=== PATIENT | female | born 1995 | race Caucasian/White ===

== ENCOUNTER 2017-02-19 20:57 | Emergency (ER) | payer SELFPAY ==
[~2017-02-19] VITALS: Ht 175.3 cm; Wt 72.0 kg
[~2017-02-19 20:57] MED LIST: SULF-154 PO; Z.0.NO CURRENT MEDS
[2017-02-19 21:00] VITALS: BP 132/78; PULSE 86; RESP 16; TEMP 98.2; O2SAT 100
[2017-02-19] MEDS ORDERED: SODIUM CHLOR 0.9% 1000 ML INJ 1,000 ML IV ONE (21:51)
--- NOTE | 2017-02-19 21:56 | PD ---
HPI Chief Complaint: GI Complaint Time Seen by Provider: 21:51 Travel History International Travel<30 days: No Contact w/Intl Traveler<30days: No Traveled to known affect area: No History of Present Illness HPI The patient is a 21-year-old female who presents to the emergency department for lower abdominal pain and . The patient states her last normal menstrual cycles begin in January, she is a who recently took a test that was positive. The patient notes a three-day history of lower abdominal pain which is intermittent, crampy, and sharp. The patient also notes some vaginal itching with some discharge, used [id number] Monistat for a possible yeast infection. She denies any spotting or bleeding. She does note mild nausea over the last 3 days, denies any diarrhea or constipation. The patient does take oral contraceptive pills, however, states she missed several doses of her oral contraceptive pill. PFSH Past Medical History Medical History: Denies Significant Hx Immunizations Current: Yes ?: Past Surgical History Surgical History: No Previous Surgery Oral Surgery: Yes Social History Alcohol Use: No Tobacco Use: Yes (1 PPD) Substance Use: No Allergies-Medications (Allergen,Severity, Reaction): Coded Allergies: No Known Allergies (Verified , 02/19/17) Reported Meds & Prescriptions Reported Meds & Active Scripts Active Septra Ds (Trimethoprim/Sulfamethoxazole) Tab 1 Tab PO BID Reported No Current Meds (Miscellaneous Medication) Misc Review of Systems Except as stated in HPI: all other systems reviewed are Neg General / Constitutional: No: Fever Cardiovascular: No: Chest Pain or Discomfort Respiratory: No: Shortness of Breath Gastrointestinal: Positive: Nausea, Vomiting, Abdominal Pain, No: Diarrhea Genitourinary: Positive: Pelvic Pain, Discharge, No: Dysuria, Vaginal Bleeding Physical Exam Narrative GENERAL: Awake, alert, nontoxic-appearing 21-year-old female who appears her stated age and is in no acute respiratory distress. SKIN: Focused skin assessment warm/dry. HEAD: Atraumatic. Normocephalic. EYES: No injection or drainage. ENT: No nasal bleeding or discharge. Mucous membranes pink and moist. NECK: Trachea midline. No JVD. CARDIOVASCULAR: Regular rate and rhythm. No murmur appreciated. RESPIRATORY: No accessory muscle use. Clear to auscultation. Breath sounds equal bilaterally. GASTROINTESTINAL: Abdomen soft, minimal suprapubic tenderness. No rebound tenderness, guarding, rigidity. Back: No CVA tenderness. Pelvic: The patient deferred, was to follow-up in an outpatient clinic. MUSCULOSKELETAL: No obvious deformities. No clubbing. No cyanosis. No edema. NEUROLOGICAL: Awake and alert. No obvious cranial nerve deficits. Motor grossly within normal limits. Normal speech. PSYCHIATRIC: Appropriate mood and affect; insight and judgment normal. Data Data Last Documented VS Vital Signs Date Time Temp Pulse Resp B/P (MAP) Pulse Ox O2 Delivery O2 Flow Rate FiO2 02/19/17 21:00 98.2 86 16 132/78 (96) 100 Room Air Orders Orders Beta Hcg (Quant/Titer) (02/19/17 21:51) Gc And Chlamydia Pcr (02/19/17 21:51) Complete Rh (02/19/17 21:51) Wet Prep Profile (02/19/17 21:51) Urinalysis - C+S If Indicated (02/19/17 21:51) Sodium Chlor 0.9% 1000 Ml Inj (Ns 1000 M (02/19/17 21:51) Ed Urine Pregnancytest Poc (02/19/17 21:51) Labs Laboratory Tests Test 02/19/17 22:10 Urine Color YELLOW Urine Turbidity HAZY Urine pH 5.5 Urine Specific [place] 1.031 Urine Protein NEG mg/dL Urine Glucose (UA) NEG mg/dL Urine Ketones NEG mg/dL Urine Occult Blood MOD Urine Nitrite NEG Urine Bilirubin NEG Urine Urobilinogen LESS THAN 2.0 MG/DL Urine Leukocyte Esterase SMALL Urine RBC 6 /hpf Urine WBC 1 /hpf Urine Squamous Epithelial Cells 1 /hpf Urine Bacteria RARE /hpf Microscopic Urinalysis Comment CULT NOT INDICATED Human Chorionic Gonadotropin, Quant LESS THAN 1 MIU/ML MDM Medical Decision Making Medical Screen Exam Complete: Yes Emergency Medical Condition: Yes Medical Record Reviewed: Yes Interpretation(s) Laboratory Tests Test 02/19/17 22:10 Urine Color YELLOW Urine Turbidity HAZY Urine pH 5.5 Urine Specific [place] 1.031 Urine Protein NEG mg/dL Urine Glucose (UA) NEG mg/dL Urine Ketones NEG mg/dL Urine Occult Blood MOD Urine Nitrite NEG Urine Bilirubin NEG Urine Urobilinogen LESS THAN 2.0 MG/DL Urine Leukocyte Esterase SMALL Urine RBC 6 /hpf Urine WBC 1 /hpf Urine Squamous Epithelial Cells 1 /hpf Urine Bacteria RARE /hpf Microscopic Urinalysis Comment CULT NOT INDICATED Human Chorionic Gonadotropin, Quant LESS THAN 1 MIU/ML Differential Diagnosis Differential diagnosis includes ectopic , threatened AB, normal , vaginitis, PID, cervicitis, UTI. Narrative Course IV was established, labs are drawn and sent, and the patient was placed on cardiac telemetry monitoring and continuous pulse oximetry monitoring. Bedside UA test was obtained and UA was sent to lab. The patient was administered 1 L of IV fluids. Bedside UA test was negative, however , patient states she had a positive test. Therefore, quantitative beta hCG was sent to lab. Beta hCG is less than 1. Patient refused pelvic examination, states she would prefer to go to an outpatient clinic. The patient will be discharged. Diagnosis Primary Impression: Pelvic pain in female Patient Instructions: General Instructions Additional Instructions: Please provide the patient copy of her labs at discharge. Follow-up with the health department and/or clinical cytogenetics director as needed. Return if symptoms worsen or progress. Med/Other Pt SpecificInfo: No Change to Meds Disposition: 01 DISCHARGE HOME Condition: Stable Jp Barth MD Feb 19, 2017 21:56
[2017-02-19 22:42] LABS: URINE COLOR YELLOW (YELLW/STRAW)
[2017-02-19 22:43] LABS: BACTERIA, URINE RARE /hpf; BLOOD, URINE MOD (NEG); COMMENT (UR) CULT NOT INDICATED; CULTURE IF INDICATED CULT NOT INDICATED; GLUCOSE,URINE NEG (NEG); KETONE, URINE NEG (NEG); NITRITE,URINE NEG (NEG); PH, URINE 5.5 (5.0-8.5); SQUAMOUS EPITHELIAL CELL URINE 1 /hpf (0-5)
[2017-02-19 23:05] LABS: BETA HCG QUANT LESS THAN 1 MIU/ML (0-5)
== END 2017-02-20 00:29 | disposition home or self-care (01) ==
LOC: NEPE 20:57
DX: R10.2 Pelvic and perineal pain (principal); R11.2 Nausea with vomiting, unspecified; F17.200 Nicotine dependence, unspecified, uncomplicated
CPT/HCPCS: 81001; 84702; 84703; 86901; 99284; J7030

== ENCOUNTER 2017-06-22 14:47 | Emergency (ER) | payer SELFPAY ==
[~2017-06-22] VITALS: Ht 175.3 cm; Wt 77.3 kg
[2017-06-22 14:49] VITALS: BP 189/73; PULSE 76; RESP 16; TEMP 98.4; O2SAT 98
[2017-06-22 16:15] LABS: AUTOMATED NEUTROPHIL # 5.4 TH/MM3 (1.8-7.7); BASOPHIL % 0.4 % (0.0-2.0); EOSINOPHIL # 0.2 TH/MM3 (0-0.4); EOSINOPHIL % 2.8 % (0.0-4.0); HEMATOCRIT 40.2 % (35.0-46.0); HEMOGLOBIN 13.5 GM/DL (11.6-15.3); LYMPH % 25.8 % (9.0-44.0); LYMPHOCYTE # 2.1 TH/MM3 (1.0-4.8); MEAN CELL VOLUME 87.5 FL (80.0-100.0); MEAN CORPUSCULAR HEMOGLOBIN 29.4 PG (27.0-34.0); MEAN CORPUSCULAR HGB CONC 33.6 % (32.0-36.0); MEAN PLATELET VOLUME 7.6 FL (7.0-11.0); MONO % 5.7 % (0.0-8.0); MONOCYTE # 0.5 TH/MM3 (0-0.9); NEUT % 65.3 % (16.0-70.0); PLATELET COUNT 283 TH/MM3 (150-450); WHITE BLOOD COUNT 8.2 TH/MM3 (4.0-11.0)
[2017-06-22 16:25] LABS: ALBUMIN 4.2 GM/DL (3.4-5.0); ALT (GPT) 23 U/L (9-42); AST (GOT) 11 U/L (16-38); BICARBONATE 28.9 MEQ/L (21.0-32.0); BLOOD UREA NITROGEN 8 MG/DL (7-18); CALCIUM 8.7 MG/DL (8.5-10.1); CHLORIDE 103 MEQ/L (98-107); CREATININE 0.52 MG/DL (0.50-1.00); GLOMERULAR FILTRATION RATE 152 ML/MIN (>89); GLUCOSE,RANDOM 87 MG/DL (74-106); SODIUM (NA) 139 MEQ/L (136-145)
[2017-06-22 16:27] LABS: ALKALINE PHOSPHATASE 78 U/L (45-117); TOTAL BILIRUBIN ADULT 0.1 MG/DL (0.2-1.0); TOTAL PROTEIN 8.3 GM/DL (6.4-8.2)
[2017-06-22 16:29] LABS: BILIRUBIN, URINE NEG (NEG); BLOOD, URINE MOD (NEG); GLUCOSE,URINE NEG (NEG); KETONE, URINE NEG (NEG); MUCUS URINE FEW /lpf (OCC); NITRITE,URINE NEG (NEG); SQUAMOUS EPITHELIAL CELL URINE 2 /hpf (0-5); URINE COLOR YELLOW (YELLW/STRAW); URINE LEUKOCYTE ESTERASE TRACE (NEG)
--- NOTE | 2017-06-22 17:51 | PD ---
HPI Chief Complaint: GI Complaint Time Seen by Provider: 17:50 Travel History International Travel<30 days: No Contact w/Intl Traveler<30days: No Traveled to known affect area: No History of Present Illness HPI 21-year-old female presents to the emergency Department with complaint of nausea for the past 2-3 months without vomiting. Reports diarrhea onset today. Has had epigastric abdominal pain after eating for the past 2-3 days and has been taking Pepto-Bismol with good relief of symptoms. Says her symptoms are most aggravated with eating [place] food. Denies fever, chills. Reports feeling dizzy, but has history of vertigo for 2-1/2 years and her current episodes of dizziness are consistent with her vertigo. Denies risk of . Last menstrual period 06/16/2017. Denies vaginal discharge, odor, dysuria. Denies history of abdominal surgeries. Has had similar stomach aches since middle school. Denies abdominal pain at this time. Denies hematochezia, hematuria. Symptoms aggravated after eating. Relieved by Pepto-Bismol. Symptoms are mild in severity. Denies pain at this time. No known allergies. Denies significant past medical history. No primary care provider. Has no other medical complaints. No other modifying factors or associated signs and symptoms. PFSH Past Medical History Immunizations Current: Yes ?: Unknown Past Surgical History Oral Surgery: Yes Social History Alcohol Use: No Tobacco Use: Yes (1 PPD) Substance Use: No (hx of ) Allergies-Medications (Allergen,Severity, Reaction): Coded Allergies: No Known Allergies (Verified , 02/19/17) Reported Meds & Prescriptions Reported Meds & Active Scripts Active Protonix (Pantoprazole Sodium) 40 Mg Tab 40 Mg PO DAILY Septra Ds (Trimethoprim/Sulfamethoxazole) Tab 1 Tab PO BID Reported No Current Meds (Miscellaneous Medication) Misc Review of Systems Except as stated in HPI: all other systems reviewed are Neg Physical Exam Narrative GENERAL: Well-nourished, well-developed female patient, in no acute distress; afebrile; nontoxic appearing SKIN: Warm and dry. HEAD: Atraumatic. Normocephalic. EYES: Pupils equal and round. No scleral icterus. No injection or drainage. ENT: Mucosa pink and moist. Airway patent. NECK: Trachea midline. CARDIOVASCULAR: Regular rate and rhythm. No murmur appreciated. RESPIRATORY: No accessory muscle use. Clear to auscultation. Breath sounds equal bilaterally. GASTROINTESTINAL: Abdomen soft, nontender, nondistended. Hepatic and splenic margins not palpable. No RUQ tenderness reproduced; negative Alejandra's sign. Bowel sounds are active 4 quadrants. Nonrigid. No rebound tenderness. No guarding. BACK: No CVA tenderness. MUSCULOSKELETAL: No obvious deformities. No clubbing. No cyanosis. No edema. NEUROLOGICAL: Awake and alert. Oriented 3. No obvious cranial nerve deficits. Motor grossly within normal limits. Normal speech. PSYCHIATRIC: Appropriate mood and affect; insight and judgment normal. Data Data Last Documented VS Vital Signs Date Time Temp Pulse Resp B/P (MAP) Pulse Ox O2 Delivery O2 Flow Rate FiO2 06/22/17 14:49 98.4 76 16 189/73 (111) 98 Room Air Orders Orders Complete Blood Count With Diff (06/22/17 15:07) Comprehensive Metabolic Panel (06/22/17 15:07) Lipase (06/22/17 15:07) Urinalysis - C+S If Indicated (06/22/17 15:07) Ed Urine Pregnancytest Poc (06/22/17 15:07) Ed Discharge Order (06/22/17 18:14) Labs Laboratory Tests Test 06/22/17 15:21 White Blood Count 8.2 TH/MM3 Red Blood Count 4.60 MIL/MM3 Hemoglobin 13.5 GM/DL Hematocrit 40.2 % Mean Corpuscular Volume 87.5 FL Mean Corpuscular Hemoglobin 29.4 PG Mean Corpuscular Hemoglobin Concent 33.6 % Red Cell Distribution Width 14.0 % Platelet Count 283 TH/MM3 Mean Platelet Volume 7.6 FL Neutrophils (%) (Auto) 65.3 % Lymphocytes (%) (Auto) 25.8 % Monocytes (%) (Auto) 5.7 % Eosinophils (%) (Auto) 2.8 % Basophils (%) (Auto) 0.4 % Neutrophils # (Auto) 5.4 TH/MM3 Lymphocytes # (Auto) 2.1 TH/MM3 Monocytes # (Auto) 0.5 TH/MM3 Eosinophils # (Auto) 0.2 TH/MM3 Basophils # (Auto) 0.0 TH/MM3 CBC Comment DIFF FINAL Differential Comment Urine Color YELLOW Urine Turbidity CLEAR Urine pH 6.0 Urine Specific [place] 1.022 Urine Protein NEG mg/dL Urine Glucose (UA) NEG mg/dL Urine Ketones NEG mg/dL Urine Occult Blood MOD Urine Nitrite NEG Urine Bilirubin NEG Urine Urobilinogen LESS THAN 2.0 MG/DL Urine Leukocyte Esterase TRACE Urine RBC 2 /hpf Urine WBC 1 /hpf Urine Squamous Epithelial Cells 2 /hpf Urine Mucus FEW /lpf Microscopic Urinalysis Comment CULT NOT INDICATED Blood Urea Nitrogen 8 MG/DL Creatinine 0.52 MG/DL Random Glucose 87 MG/DL Total Protein 8.3 GM/DL Albumin 4.2 GM/DL Calcium Level 8.7 MG/DL Alkaline Phosphatase 78 U/L Aspartate Amino Transf (AST/SGOT) 11 U/L Alanine Aminotransferase (ALT/SGPT) 23 U/L Total Bilirubin 0.1 MG/DL Sodium Level 139 MEQ/L Potassium Level 3.4 MEQ/L Chloride Level 103 MEQ/L Carbon Dioxide Level 28.9 MEQ/L Anion Gap 7 MEQ/L Estimat Glomerular Filtration Rate 152 ML/MIN Lipase 123 U/L MDM Medical Decision Making Medical Screen Exam Complete: Yes Emergency Medical Condition: Yes Medical Record Reviewed: Yes Differential Diagnosis Gastroenteritis, gastric reflux, gastritis, gastric ulcers Narrative Course 21-year-old female with nausea for the past 2-3 months and diarrhea. Has epigastric abdominal pain after eating. Denies abdominal pain now. Denies fevers. The patient is afebrile and nontoxic-appearing. I discussed the patient with my attending physician, Dr. Sánchez, and she agrees with my plan of care. CBC, CMP, urinalysis, UPT ordered in triage. 1750: CBC unremarkable. Potassium 3.4, otherwise CMP unremarkable. Urinalysis with no signs of infection. UPT negative. Protonix prescribed for home. Instructed patient to avoid aggravating foods. Instructed patient to follow up with gastroenterology. Instructed patient to follow up with primary care provider. Patient verbalizes understanding and agreement with treatment plan. Patient is medically cleared and stable for discharge. Discussed reasons to return to the emergency department. Patient agrees with treatment plan. The patients vital signs are stable and the patient is stable for outpatient follow-up and treatment. Patient discharged home, stable and in no acute distress. Diagnosis Primary Impression: Nausea Additional Impressions: Diarrhea Qualified Codes: R19.7 - Diarrhea, unspecified Acute epigastric pain Referrals: [facility] [employer] [facility] Primary Care Physician Patient Instructions: Acute Diarrhea (ED), Acute Nausea and Vomiting (ED), Gastroesophageal Reflux Disease (ED), General Instructions Departure Forms: Tests/Procedures, Work Release Enter return to work date: Jun 23, 2017 Additional Instructions: Take Protonix as prescribed Increase fluid intake, starting with clear fluids; advancing to a bland diet as tolerated Avoid aggravating food; avoid spicy, fatty, deep-fried foods Follow-up primary care provider Follow-up with gastroenterology Return to emergency department immediately with worsening of symptoms Med/Other Pt SpecificInfo: Prescription(s) given Scripts Pantoprazole (Protonix) 40 Mg Tab 40 MG PO DAILY for Reflux, #30 TAB 0 Refills Prov: Peyton Barriga 06/22/17 Disposition: 01 DISCHARGE HOME Condition: Stable Peyton Barriga Jun 22, 2017 17:51
[2017-06-22] MEDS ORDERED: PROT40TA PO (18:13)
== END 2017-06-22 18:32 | disposition home or self-care (01) ==
LOC: NEPD 14:47
DX: R11.0 Nausea (principal); R19.7 Diarrhea, unspecified; R10.13 Epigastric pain; R42 Dizziness and giddiness; F17.200 Nicotine dependence, unspecified, uncomplicated
CPT/HCPCS: 80053; 81001; 83690; 84703; 85025; 99283

== ENCOUNTER 2017-07-05 11:19 | Emergency (ER) | payer MEDICAID ==
[~2017-07-05 11:19] MED LIST changes: +PROT40TA PO
[2017-07-05 11:21] VITALS: BP 136/78; PULSE 104; RESP 16; TEMP 100.9; O2SAT 99
--- NOTE | 2017-07-05 11:37 | PD ---
HPI Chief Complaint: Cold / Flu Symptoms Time Seen by Provider: 11:27 Travel History International Travel<30 days: No Contact w/Intl Traveler<30days: No Traveled to known affect area: No History of Present Illness HPI 21-year-old female presents emergency department with 3 day history of flulike symptoms including headache, sore throat, cough, fever, body aches, nausea and vomiting. Patient now has lower abdominal and back pain, and ongoing nausea. She feels generally worse today except for sore throat is improved. Patient denies vaginal symptoms. She denies chest pain or shortness of breath today. Patient has been taking [id number] cough and cold medicines with some relief. She states she works in a [employer] center many people been ill there. She has no known drug allergies [facility] Past Medical History Immunizations Current: Yes ?: Not LMP: 06/16/2017 Past Surgical History Oral Surgery: Yes Social History Alcohol Use: No Tobacco Use: Yes (1 PPD) Substance Use: No (hx of ) Allergies-Medications (Allergen,Severity, Reaction): Coded Allergies: No Known Allergies (Verified , 02/19/17) Reported Meds & Prescriptions Reported Meds & Active Scripts Active Protonix (Pantoprazole Sodium) 40 Mg Tab 40 Mg PO DAILY Septra Ds (Trimethoprim/Sulfamethoxazole) Tab 1 Tab PO BID Reported No Current Meds (Miscellaneous Medication) Misc Review of Systems Except as stated in HPI: all other systems reviewed are Neg General / Constitutional: Positive: Fever, Chills Eyes: No: Visual changes HENT: Positive: Headaches, Sore Throat, Rhinitis, Rhinorrhea, Congestion, No: Vertigo, Lightheadedness, Nosebleed, Neck Stiffness, Dental Difficulties, Earache Cardiovascular: No: Chest Pain or Discomfort Respiratory: Positive: Cough, No: Shortness of Breath, Wheezing, Sneezing Gastrointestinal: Positive: Nausea, Vomiting, Diarrhea, Abdominal Pain Genitourinary: No: Urgency, Frequency (From coughing), Dysuria Musculoskeletal: No: Pain Skin: No Rash Neurologic: No: Weakness Psychiatric: No: Depression Endocrine: No: Polydipsia Hematologic/Lymphatic: No: Easy Bruising Physical Exam Narrative GENERAL: Patient appears ill but not septic. She is ambulatory to the room without difficulty. SKIN: Warm and dry. Decreased pallor. No decreased turgor. HEAD: Atraumatic. Normocephalic. EYES: Pupils equal and round. No scleral icterus. No injection or drainage. ENT: No nasal bleeding. Mucous membranes pink and moist. TMs are clear. Patient has moderate clear to light rhinitis. Posterior pharynx is unremarkable. No significant swelling. Airways patent. No sinus tenderness to palpation or percussion NECK: Trachea midline. Supple without significant lymphadenopathy CARDIOVASCULAR: Regular rate and rhythm. RESPIRATORY: No accessory muscle use. Clear to auscultation. Breath sounds equal bilaterally. GASTROINTESTINAL: Abdomen soft, mild diffuse tenderness, nondistended. No point tenderness or rebound. No CVA tenderness. Hepatic and splenic margins not palpable. MUSCULOSKELETAL: Extremities without clubbing, cyanosis, or edema. No obvious deformities. NEUROLOGICAL: Awake and alert. No obvious cranial nerve deficits. Motor grossly within normal limits. Five out of 5 muscle strength in the arms and legs. Normal speech. PSYCHIATRIC: Appropriate mood and affect; insight and judgment normal. Data Data Last Documented VS Vital Signs Date Time Temp Pulse Resp B/P (MAP) Pulse Ox O2 Delivery O2 Flow Rate FiO2 07/05/17 11:44 97 Room Air 07/05/17 11:21 100.9 104 16 136/78 (97) Orders Orders Urinalysis - C+S If Indicated (07/05/17 11:31) Ondansetron Odt (Zofran Odt) (07/05/17 11:45) Acetaminophen (Tylenol) (07/05/17 11:45) Labs Laboratory Tests Test 07/05/17 11:45 Urine Color YELLOW Urine Turbidity HAZY Urine pH 6.0 Urine Specific [place] 1.036 Urine Protein 30 mg/dL Urine Glucose (UA) NEG mg/dL Urine Ketones TRACE mg/dL Urine Occult Blood LARGE Urine Nitrite NEG Urine Bilirubin NEG Urine Urobilinogen 2.0 MG/DL Urine Leukocyte Esterase NEG Urine RBC 53 /hpf Urine WBC 1 /hpf Urine Squamous Epithelial Cells 3 /hpf Urine Mucus MANY /lpf Microscopic Urinalysis Comment CULT NOT INDICATED MDM Medical Decision Making Medical Screen Exam Complete: Yes Emergency Medical Condition: Yes Differential Diagnosis Febrile illness. Influenza. UTI. Narrative Course Patient is presumed to have influenza. Patient is given Tamiflu 75 mg p.o. now as well as 650 mg acetaminophen p.o. As well as Zofran 4 mg p.o. Urinalysis is sent to the lab. Further testing is not felt warranted at this time Urine is unremarkable. Patient will be treated empirically with Tamiflu 75 mg twice daily 5 days. Patient also given Zofran 4 mg every 6 hours as needed nausea vomiting #12. Patient is to rest, push fluids, and use Tylenol Motrin as needed for fever. Work note was given for the next 2 days. Patient can return if symptoms worsen as needed. Diagnosis Primary Impression: Influenza Patient Instructions: Acute Nausea and Vomiting (ED), General Instructions, Influenza (DC) Departure Forms: Work Release Enter return to work date: Jul 08, 2017 Additional Instructions: Urine is unremarkable. Patient will be treated empirically with Tamiflu 75 mg twice daily 5 days. Patient also given Zofran 4 mg every 6 hours as needed nausea vomiting #12. Patient is to rest, push fluids, and use Tylenol Motrin as needed for fever. Work note was given for the next 2 days. Patient can return if symptoms worsen as needed. Med/Other Pt SpecificInfo: Prescription(s) given Disposition: 01 DISCHARGE HOME Condition: Stable Mike Harrison Jul 05, 2017 11:37
[2017-07-05] MEDS ORDERED: ONDANSETRON ODT 4 MG TAB PO ONE (11:45)
[2017-07-05] MEDS ORDERED: ACETAMINOPHEN 325 MG TAB PO ONE (11:45)
[2017-07-05 12:28] LABS: BILIRUBIN, URINE NEG (NEG); BLOOD, URINE LARGE (NEG); GLUCOSE,URINE NEG (NEG); KETONE, URINE TRACE mg/dL (NEG); MUCUS URINE MANY /lpf (OCC); NITRITE,URINE NEG (NEG); SQUAMOUS EPITHELIAL CELL URINE 3 /hpf (0-5); URINE COLOR YELLOW (YELLW/STRAW); URINE LEUKOCYTE ESTERASE NEG (NEG)
[2017-07-05] MEDS ORDERED: ZOFR4TAB PO (13:31)
[2017-07-05] MEDS ORDERED: OSEL75 PO (13:31)
== END 2017-07-05 13:56 | disposition home or self-care (01) ==
LOC: NEPD 11:19
DX: J11.1 Influenza due to unidentified influenza virus with other respiratory manifestations (principal); R11.2 Nausea with vomiting, unspecified; F17.210 Nicotine dependence, cigarettes, uncomplicated; Z79.899 Other long term (current) drug therapy
CPT/HCPCS: 81001; 99283